=== PATIENT | female | born 1960 | race Caucasian/White ===

== ENCOUNTER 2019-09-23 05:52 | Inpatient (IN) | payer MEDICAID ==
[~2019-09-23] VITALS: Ht 162.6 cm; Wt 47.4 kg
[2019-09-23] MEDS ORDERED: DILTIAZEM HCL 5MG/ML 5ML VIAL IV ONE (06:30)
[2019-09-23] MEDS ORDERED: DILTIAZEM HCL 125 MG in DEXT 5% WATER 100 ML IV ONE (06:30)
[2019-09-23] MEDS ORDERED: ASPIRIN 81MG TABLET PO ONE (06:30)
[2019-09-23 07:17] LABS: BASOPHILS % 1.2 % (0.0-2.0); HEMATOCRIT. 37.1 % (36.0-48.0); HEMOGLOBIN. 12.3 g/dL (12.0-16.0); MEAN CORPUSCULAR HEMOGLOBIN 25.6 pg (28.0-32.0); MEAN CORPUSCULAR VOLUME 77.3 fL (81.0-99.0); MONOCYTES % 12.9 % (2.0-8.0); NEUTROPHILS % 52.9 % (40.0-76.0); PLATELET 230 x1000/uL (130-400); RED BLOOD CELL COUNT 4.79 mill/uL (4.2-5.4); RED CELL DISTRIBUTION WIDTH 15.4 % (11.6-14.6)
[2019-09-23 07:25] LABS: CHLORIDE 115 mEq/L (98-107)
[2019-09-23 07:26] LABS: D-DIMER 0.95 mg/L FEU (<0.50); INR 1.2; PARTIAL THROMBOPLASTIN TIME 27.3 sec (23.4-31.0); PROTHROMBIN TIME 11.8 sec (9.6-11.0)
[2019-09-23] MEDS ORDERED: IOHEXOL-350 100 ML BOTTLE ONE (11:07)
[2019-09-23] MEDS ORDERED: ENOXAPARIN 60MG/0.6ML SYR SUBCUT ONE (12:15)
[2019-09-23] MEDS ORDERED: ACETAMINOPHEN 325MG TABLET PO PRN (16:30)
[2019-09-23] MEDS ORDERED: ONDANSETRON HCL 4MG/2ML INJ IV PRN (16:30)
[2019-09-23 17:42] LABS: LDL CHOLESTEROL 35 mg/dL (5-100)
[2019-09-23 17:44] LABS: HDL CHOLESTEROL 22 mg/dL (40-59)
[2019-09-23 18:00] VITALS: BP 118/69
[2019-09-23] MEDS ORDERED: FUROSEMIDE 40MG/4ML VIAL IVP NR ×2 (18:15→19:00)
[2019-09-23 20:00] VITALS: BP 113/64
[2019-09-23] MEDS: ENOXAPARIN 60MG/0.6ML SYR SUBCUT SCH ×2 (22:00→22:35)
[2019-09-23] MEDS: DILTIAZEM HCL 60MG TABLET PO SCH (22:35)
[2019-09-24] VITALS: BP 95/57
[2019-09-24] MEDS: IPRATROPIUM BROMIDE (0.02%) 0.5MG/2.5ML NEB HHN SCH ×7 (01:18→23:49)
[2019-09-24] MEDS: BUDESONIDE 0.5MG/2ML NEB HHN SCH ×3 (01:19→20:27)
[2019-09-24 04:00] VITALS: BP 97/51
[2019-09-24] MEDS: DILTIAZEM HCL 60MG TABLET PO SCH (06:00)
[2019-09-24 07:05] LABS: BASOPHILS % 0.2 % (0.0-2.0); EOSINOPHILS % 3.5 % (0.0-5.0); HEMATOCRIT. 34.8 % (36.0-48.0); HEMOGLOBIN. 11.7 g/dL (12.0-16.0); LYMPHOCYTES % 31.7 % (20.0-50.0); MEAN CORPUSCULAR HEMOGLOBIN 25.5 pg (28.0-32.0); MEAN CORPUSCULAR VOLUME 76.2 fL (81.0-99.0); MEAN PLATELET VOLUME 10.4 fl (7.4-10.4); MONOCYTES % 12.2 % (2.0-8.0); NEUTROPHILS % 52.4 % (40.0-76.0); PLATELET 243 x1000/uL (130-400); RED BLOOD CELL COUNT 4.57 mill/uL (4.2-5.4); RED CELL DISTRIBUTION WIDTH 15.6 % (11.6-14.6)
[2019-09-24 07:45] LABS: CHLORIDE 109 mEq/L (98-107)
[2019-09-24 08:40] VITALS: BP 95/59
[2019-09-24] MEDS: ENOXAPARIN 60MG/0.6ML SYR SUBCUT SCH ×2 (10:00→21:36)
[2019-09-24 11:11] LABS: CLARITY URINE CLEAR (CLEAR); COLOR URINE YELLOW (YELLOW); KETONES URINE NEGATIVE (NEGATIVE); LEUKOCYTE ESTERASE URINE TRACE (NEGATIVE); NITRITE URINE NEGATIVE (NEGATIVE); OCCULT BLOOD URINE 2+ (NEGATIVE); PH URINE 5.5 (4.5-8.0); PROTEIN URINE TRACE (NEGATIVE); UROBILINOGEN URINE 0.2 E.U./dL (0.2-1.0)
[2019-09-24 11:29] LABS: CANNABINOID URINE SCREEN NEGATIVE (NEGATIVE); METHADONE URINE SCREEN NEGATIVE (NEGATIVE); OPIATES URINE SCREEN NEGATIVE (NEGATIVE)
[2019-09-24 11:30] LABS: *AMPHETAMINES SCREEN URINE NEGATIVE (NEGATIVE); *BARBITURATES SCREEN URINE NEGATIVE (NEGATIVE); *BENZODIAZEPINES SCREEN URINE NEGATIVE (NEGATIVE); *COCAINE SCREEN URINE NEGATIVE (NEGATIVE); PHENCYCLIDINE URINE SCREEN NEGATIVE (NEGATIVE)
[2019-09-24 12:35] VITALS: BP 100/50
[2019-09-24 16:11] LABS: T4 FREE >8.0 ng/dL ng/dL (0.76-1.46)
[2019-09-24 16:14] VITALS: BP 107/59
[2019-09-24 20:00] VITALS: BP 105/62
[2019-09-24] MEDS: METOPROLOL TARTRATE 25MG TABLET PO SCH (21:00)
[2019-09-24] MEDS: METHIMAZOLE 5MG TABLET PO SCH (21:16)
[2019-09-25] VITALS: BP 130/73
[2019-09-25 04:00] VITALS: BP 103/66
[2019-09-25] MEDS: IPRATROPIUM BROMIDE (0.02%) 0.5MG/2.5ML NEB HHN SCH ×5 (04:31→21:04)
[2019-09-25] MEDS: METHIMAZOLE 5MG TABLET PO SCH ×3 (05:06→21:06)
[2019-09-25 06:22] LABS: BASOPHILS % 0.7 % (0.0-2.0); EOSINOPHILS % 6.3 % (0.0-5.0); HEMATOCRIT. 36.9 % (36.0-48.0); HEMOGLOBIN. 12.4 g/dL (12.0-16.0); LYMPHOCYTES % 26.8 % (20.0-50.0); MEAN CORPUSCULAR HEMOGLOBIN 25.8 pg (28.0-32.0); MEAN CORPUSCULAR VOLUME 77.1 fL (81.0-99.0); MEAN PLATELET VOLUME 10.3 fl (7.4-10.4); MONOCYTES % 12.6 % (2.0-8.0); NEUTROPHILS % 53.6 % (40.0-76.0); PLATELET 240 x1000/uL (130-400); RED BLOOD CELL COUNT 4.78 mill/uL (4.2-5.4); RED CELL DISTRIBUTION WIDTH 15.4 % (11.6-14.6)
[2019-09-25 06:44] LABS: CHLORIDE 111 mEq/L (98-107)
[2019-09-25 08:00] VITALS: BP 135/57
[2019-09-25] MEDS: ENOXAPARIN 60MG/0.6ML SYR SUBCUT SCH ×2 (08:30→21:04)
[2019-09-25] MEDS: METOPROLOL TARTRATE 25MG TABLET PO SCH ×3 (08:31→21:00)
[2019-09-25] MEDS: BUDESONIDE 0.5MG/2ML NEB HHN SCH ×2 (08:41→21:04)
[2019-09-25] MEDS ORDERED: METOLAZONE 5MG TABLET PO SCH (09:00)
[2019-09-25] MEDS: DILTIAZEM HCL 5MG/ML 5ML VIAL IV PRN ×3 (11:13→21:07)
[2019-09-25 12:00] VITALS: BP 92/60
[2019-09-25 16:00] VITALS: BP 102/57
[2019-09-25 20:56] VITALS: BP 94/66
[2019-09-26] VITALS (7 sets, daily range): BP systolic 97–130; BP diastolic 52–80
[2019-09-26] MEDS: IPRATROPIUM BROMIDE (0.02%) 0.5MG/2.5ML NEB HHN SCH ×6 (00:30→21:37)
[2019-09-26] MEDS: DILTIAZEM HCL 5MG/ML 5ML VIAL IV PRN ×4 (01:35→14:02)
[2019-09-26] MEDS: METHIMAZOLE 5MG TABLET PO SCH ×3 (06:02→21:24)
[2019-09-26] MEDS: ENOXAPARIN 60MG/0.6ML SYR SUBCUT SCH ×2 (06:02→19:10)
[2019-09-26 06:36] LABS: CHLORIDE 106 mEq/L (98-107)
[2019-09-26 06:37] LABS: BASOPHILS % 0.6 % (0.0-2.0); EOSINOPHILS % 7.5 % (0.0-5.0); HEMATOCRIT. 41.3 % (36.0-48.0); HEMOGLOBIN. 13.9 g/dL (12.0-16.0); LYMPHOCYTES % 19.6 % (20.0-50.0); MEAN CORPUSCULAR HEMOGLOBIN 25.9 pg (28.0-32.0); MEAN CORPUSCULAR VOLUME 76.9 fL (81.0-99.0); MEAN PLATELET VOLUME 10.5 fl (7.4-10.4); MONOCYTES % 12.5 % (2.0-8.0); NEUTROPHILS % 59.8 % (40.0-76.0); PLATELET 257 x1000/uL (130-400); RED BLOOD CELL COUNT 5.37 mill/uL (4.2-5.4); RED CELL DISTRIBUTION WIDTH 15.3 % (11.6-14.6)
[2019-09-26] MEDS: BUDESONIDE 0.5MG/2ML NEB HHN SCH ×2 (08:17→21:37)
[2019-09-26] MEDS: METOPROLOL TARTRATE 25MG TABLET PO SCH ×2 (08:21→21:24)
[2019-09-27] VITALS: BP 123/64
[2019-09-27] MEDS: IPRATROPIUM BROMIDE (0.02%) 0.5MG/2.5ML NEB HHN SCH ×5 (01:13→16:16)
[2019-09-27 04:00] VITALS: BP 116/68
[2019-09-27] MEDS: METHIMAZOLE 5MG TABLET PO SCH ×2 (06:35→13:10)
[2019-09-27] MEDS: ENOXAPARIN 60MG/0.6ML SYR SUBCUT SCH (06:35)
[2019-09-27 06:42] LABS: CHLORIDE 105 mEq/L (98-107)
[2019-09-27 06:58] LABS: BASOPHILS % 0.8 % (0.0-2.0); EOSINOPHILS % 9.2 % (0.0-5.0); HEMATOCRIT. 40.6 % (36.0-48.0); HEMOGLOBIN. 13.5 g/dL (12.0-16.0); MEAN CORPUSCULAR HEMOGLOBIN 25.8 pg (28.0-32.0); MEAN CORPUSCULAR VOLUME 77.4 fL (81.0-99.0); MEAN PLATELET VOLUME 10.4 fl (7.4-10.4); MONOCYTES % 14.1 % (2.0-8.0); NEUTROPHILS % 55.9 % (40.0-76.0); PLATELET 248 x1000/uL (130-400); RED BLOOD CELL COUNT 5.24 mill/uL (4.2-5.4); RED CELL DISTRIBUTION WIDTH 15.6 % (11.6-14.6)
[2019-09-27 08:00] VITALS: BP 116/73
[2019-09-27] MEDS: BUDESONIDE 0.5MG/2ML NEB HHN SCH (08:31)
[2019-09-27] MEDS: METOPROLOL TARTRATE 25MG TABLET PO SCH (09:19)
[2019-09-27 12:00] VITALS: BP 142/77
[2019-09-27] MEDS ORDERED: METO25TA6 PO (13:18)
[2019-09-27] MEDS ORDERED: TAP5 PO (13:18)
[2019-09-27] MEDS ORDERED: ASPI-1393 MT (13:18)
[2019-09-27 16:00] VITALS: BP 121/71
[2019-09-27 16:35] VITALS: BP 121/71
== END 2019-09-27 18:41 | disposition home or self-care (01) | DRG 201 ==
LOC: ER 05:52 → 6WST 12:24 → ENRESERV 16:46
PROVIDERS: ADMIT Internal Medicine; ATTEND Internal Medicine
DX: I48.91 Unspecified atrial fibrillation (principal); E43 Unspecified severe protein-calorie malnutrition; J84.9 Interstitial pulmonary disease, unspecified; E87.8 Other disorders of electrolyte and fluid balance, not elsewhere classified; I27.20 Pulmonary hypertension, unspecified; R64 Cachexia; E83.51 Hypocalcemia; E05.00 Thyrotoxicosis with diffuse goiter without thyrotoxic crisis or storm; H05.20 Unspecified exophthalmos; J44.9 Chronic obstructive pulmonary disease, unspecified; D64.9 Anemia, unspecified; I25.10 Atherosclerotic heart disease of native coronary artery without angina pectoris; I50.40 Unspecified combined systolic (congestive) and diastolic (congestive) heart failure; Z60.2 Problems related to living alone; R07.89 Other chest pain; Z87.891 Personal history of nicotine dependence; Z59.0 Homelessness; Z68.1 Body mass index [BMI] 19.9 or less, adult; Z79.899 Other long term (current) drug therapy; Z79.82 Long term (current) use of aspirin
CPT/HCPCS: 36415; 71045; 71275; 80048; 80061; 80305; 81003; 82533; 83520; 83880; 84439; 84443; 84481; 84484; 85379; 93005; 93306; 94640; 96365; 96372; 96375; 99291; C1893; J1650; J1940; J3490; J7060; J7626; Q9967; A4315

== ENCOUNTER 2019-10-31 17:56 | Inpatient (IN) | payer MEDICAID ==
[~2019-10-31] VITALS: Ht 162.6 cm; Wt 51.5 kg
[~2019-10-31 17:56] MED LIST: ASPI-1497 MT; METO25TA6 PO; TAP5 PO
[2019-10-31] MEDS ORDERED: ASPIRIN 81MG TABLET PO ONE (19:00)
[2019-10-31 19:22] LABS: BASOPHILS % 1.2 % (0.0-2.0); EOSINOPHILS % 5.1 % (0.0-5.0); HEMATOCRIT. 38.3 % (36.0-48.0); HEMOGLOBIN. 12.7 g/dL (12.0-16.0); LYMPHOCYTES % 34.9 % (20.0-50.0); MEAN CORPUSCULAR HEMOGLOBIN 26.2 pg (28.0-32.0); MEAN CORPUSCULAR VOLUME 79.2 fL (81.0-99.0); MONOCYTES % 12.4 % (2.0-8.0); NEUTROPHILS % 46.4 % (40.0-76.0); PLATELET 243 x1000/uL (130-400); RED BLOOD CELL COUNT 4.84 mill/uL (4.2-5.4); RED CELL DISTRIBUTION WIDTH 15.5 % (11.6-14.6)
[2019-10-31 19:27] LABS: CHLORIDE 110 mEq/L (98-107)
[2019-10-31 21:15] LABS: T4 FREE >8.0 ng/dL ng/dL (0.76-1.46)
[2019-10-31] MEDS ORDERED: ONDANSETRON HCL 4MG/2ML INJ IV PRN (22:00)
[2019-10-31] MEDS ORDERED: HYDROCODONE/ACETAMINOPHEN 5/325MG TABLET PO PRN (22:00)
[2019-10-31] MEDS ORDERED: ACETAMINOPHEN 325MG TABLET PO PRN (22:00)
[2019-10-31] MEDS ORDERED: CLONIDINE 0.1MG TABLET PO PRN (22:00)
[2019-10-31] MEDS ORDERED: MAGNESIUM/ALUMINUM HYDROXIDE/SIMETHICONE 30ML UDC PO PRN (22:00)
[2019-10-31] MEDS ORDERED: IPRATROPIUM/ALBUTEROL 0.5-3(2.5)MG/3ML NEB NEB PRN (22:00)
[2019-10-31 23:51] LABS: CHLORIDE 112 mEq/L (98-107)
[2019-10-31 23:58] LABS: CREATINE KINASE 22 IU/L (26-192)
[2019-11-01] VITALS (7 sets, daily range): BP systolic 118–140; BP diastolic 63–76
[2019-11-01 00:01] LABS: CREATINE KINASE MB FRACTION < 1.0 ng/mL (0.5-3.6)
[2019-11-01 00:40] LABS: CLARITY URINE CLOUDY (CLEAR); COLOR URINE YELLOW (YELLOW); KETONES URINE NEGATIVE (NEGATIVE); LEUKOCYTE ESTERASE URINE 2+ (NEGATIVE); NITRITE URINE NEGATIVE (NEGATIVE); OCCULT BLOOD URINE NEGATIVE (NEGATIVE); PROTEIN URINE NEGATIVE (NEGATIVE)
[2019-11-01 00:52] LABS: *AMPHETAMINES SCREEN URINE NEGATIVE (NEGATIVE); *BARBITURATES SCREEN URINE NEGATIVE (NEGATIVE); *BENZODIAZEPINES SCREEN URINE NEGATIVE (NEGATIVE); CANNABINOID URINE SCREEN NEGATIVE (NEGATIVE); METHADONE URINE SCREEN NEGATIVE (NEGATIVE); OPIATES URINE SCREEN NEGATIVE (NEGATIVE); PHENCYCLIDINE URINE SCREEN NEGATIVE (NEGATIVE)
[2019-11-01 00:53] LABS: *COCAINE SCREEN URINE NEGATIVE (NEGATIVE)
[2019-11-01 06:29] LABS: LDL CHOLESTEROL 45 mg/dL (5-100)
[2019-11-01 06:31] LABS: CREATINE KINASE 25 IU/L (26-192); HDL CHOLESTEROL 29 mg/dL (40-59)
[2019-11-01 06:32] LABS: CREATINE KINASE MB FRACTION < 1.0 ng/mL (0.5-3.6)
[2019-11-01] MEDS: METHIMAZOLE 10MG TABLET PO SCH ×3 (06:47→21:20)
[2019-11-01 06:54] LABS: BASOPHILS % 0.8 % (0.0-2.0); EOSINOPHILS % 6.8 % (0.0-5.0); HEMATOCRIT. 36.6 % (36.0-48.0); HEMOGLOBIN. 12.1 g/dL (12.0-16.0); LYMPHOCYTES % 38.9 % (20.0-50.0); MEAN CORPUSCULAR VOLUME 78.7 fL (81.0-99.0); MEAN PLATELET VOLUME 10.2 fl (7.4-10.4); MONOCYTES % 13.8 % (2.0-8.0); NEUTROPHILS % 39.7 % (40.0-76.0); PLATELET 225 x1000/uL (130-400); RED BLOOD CELL COUNT 4.65 mill/uL (4.2-5.4); RED CELL DISTRIBUTION WIDTH 15.1 % (11.6-14.6)
[2019-11-01] MEDS: ASPIRIN 81MG EC TABLET PO SCH (09:21)
[2019-11-01] MEDS: ENOXAPARIN 30MG/0.3ML SYR SUBCUT SCH (09:22)
[2019-11-02] VITALS (9 sets, daily range): BP systolic 83–119; BP diastolic 52–76
[2019-11-02] MEDS: METHIMAZOLE 10MG TABLET PO SCH ×3 (06:06→22:10)
[2019-11-02] MEDS ORDERED: DILTIAZEM HCL 60MG TABLET PO NR (07:33)
[2019-11-02] MEDS: DILTIAZEM HCL 5MG/ML 5ML VIAL IV NR ×2 (08:41→10:01)
[2019-11-02] MEDS: ASPIRIN 81MG EC TABLET PO SCH (09:19)
[2019-11-02] MEDS: ENOXAPARIN 30MG/0.3ML SYR SUBCUT SCH (09:19)
[2019-11-02] MEDS: METOPROLOL TARTRATE 25MG TABLET PO SCH ×2 (10:01→21:00)
[2019-11-02] MEDS: AMIODARONE HCL 200 MG TABLET PO SCH (22:10)
[2019-11-03] VITALS (12 sets, daily range): BP systolic 93–127; BP diastolic 31–96
[2019-11-03] MEDS: METHIMAZOLE 10MG TABLET PO SCH ×3 (06:29→22:01)
[2019-11-03] MEDS: ASPIRIN 81MG EC TABLET PO SCH (09:46)
[2019-11-03] MEDS: METOPROLOL TARTRATE 25MG TABLET PO SCH ×2 (09:46→22:01)
[2019-11-03] MEDS: AMIODARONE HCL 200 MG TABLET PO SCH (09:47)
[2019-11-03] MEDS: ENOXAPARIN 30MG/0.3ML SYR SUBCUT SCH (09:47)
[2019-11-03 13:47] LABS: BASOPHILS % 0.6 % (0.0-2.0); HEMATOCRIT. 37.7 % (36.0-48.0); HEMOGLOBIN. 12.4 g/dL (12.0-16.0); LYMPHOCYTES % 22.4 % (20.0-50.0); MEAN CORPUSCULAR HEMOGLOBIN 26.1 pg (28.0-32.0); MEAN CORPUSCULAR VOLUME 79.2 fL (81.0-99.0); MEAN PLATELET VOLUME 10.5 fl (7.4-10.4); MONOCYTES % 14.7 % (2.0-8.0); NEUTROPHILS % 59.3 % (40.0-76.0); PLATELET 227 x1000/uL (130-400); RED BLOOD CELL COUNT 4.75 mill/uL (4.2-5.4); RED CELL DISTRIBUTION WIDTH 14.8 % (11.6-14.6)
[2019-11-03 14:02] LABS: CHLORIDE 109 mEq/L (98-107)
[2019-11-04] VITALS (14 sets, daily range): BP systolic 93–137; BP diastolic 57–86
[2019-11-04] MEDS: METHIMAZOLE 10MG TABLET PO SCH ×3 (06:20→21:45)
[2019-11-04 07:05] LABS: BASOPHILS % 0.7 % (0.0-2.0); EOSINOPHILS % 6.9 % (0.0-5.0); HEMATOCRIT. 39.1 % (36.0-48.0); HEMOGLOBIN. 12.6 g/dL (12.0-16.0); LYMPHOCYTES % 21.9 % (20.0-50.0); MEAN CORPUSCULAR HEMOGLOBIN 25.8 pg (28.0-32.0); MEAN CORPUSCULAR VOLUME 79.8 fL (81.0-99.0); MEAN PLATELET VOLUME 10.3 fl (7.4-10.4); MONOCYTES % 13.3 % (2.0-8.0); NEUTROPHILS % 57.2 % (40.0-76.0); PLATELET 213 x1000/uL (130-400); RED CELL DISTRIBUTION WIDTH 14.8 % (11.6-14.6)
[2019-11-04] MEDS: DILTIAZEM HCL 5MG/ML 5ML VIAL IV PRN (07:11)
[2019-11-04 07:16] LABS: CHLORIDE 111 mEq/L (98-107)
[2019-11-04] MEDS: ENOXAPARIN 30MG/0.3ML SYR SUBCUT SCH (08:50)
[2019-11-04] MEDS: METOPROLOL TARTRATE 25MG TABLET PO SCH ×2 (08:51→21:44)
[2019-11-04] MEDS: ASPIRIN 81MG EC TABLET PO SCH (08:51)
[2019-11-04] MEDS ORDERED: AMIODARONE HCL 200 MG TABLET PO SCH (09:00)
[2019-11-04] MEDS: AMIODARONE HCL 200 MG TABLET PO SCH ×3 (11:59→18:23)
[2019-11-04] MEDS ORDERED: PERMETHRIN 5% CREAM 60GM TOP NR (22:00)
[2019-11-05] VITALS (13 sets, daily range): BP systolic 98–127; BP diastolic 58–82
[2019-11-05] MEDS: METHIMAZOLE 10MG TABLET PO SCH ×3 (06:55→22:21)
[2019-11-05 08:35] LABS: CHLORIDE 107 mEq/L (98-107)
[2019-11-05 08:44] LABS: BASOPHILS % 0.6 % (0.0-2.0); EOSINOPHILS % 6.6 % (0.0-5.0); HEMATOCRIT. 40.8 % (36.0-48.0); HEMOGLOBIN. 13.4 g/dL (12.0-16.0); LYMPHOCYTES % 22.7 % (20.0-50.0); MEAN CORPUSCULAR VOLUME 79.2 fL (81.0-99.0); MEAN PLATELET VOLUME 10.7 fl (7.4-10.4); MONOCYTES % 10.9 % (2.0-8.0); NEUTROPHILS % 59.2 % (40.0-76.0); PLATELET 222 x1000/uL (130-400); RED BLOOD CELL COUNT 5.14 mill/uL (4.2-5.4)
[2019-11-05] MEDS: METOPROLOL TARTRATE 25MG TABLET PO SCH ×3 (09:13→22:22)
[2019-11-05] MEDS: AMIODARONE HCL 200 MG TABLET PO SCH ×3 (09:13→17:28)
[2019-11-05] MEDS: ASPIRIN 81MG EC TABLET PO SCH (09:13)
[2019-11-05] MEDS: ENOXAPARIN 30MG/0.3ML SYR SUBCUT SCH (09:13)
[2019-11-05] MEDS: DILTIAZEM HCL 5MG/ML 5ML VIAL IV PRN (09:49)
[2019-11-06] VITALS (12 sets, daily range): BP systolic 90–135; BP diastolic 55–86
[2019-11-06] MEDS: METHIMAZOLE 10MG TABLET PO SCH ×3 (06:35→21:36)
[2019-11-06 06:44] LABS: BASOPHILS % 0.8 % (0.0-2.0); EOSINOPHILS % 7.8 % (0.0-5.0); HEMATOCRIT. 39.2 % (36.0-48.0); LYMPHOCYTES % 25.5 % (20.0-50.0); MEAN CORPUSCULAR HEMOGLOBIN 26.1 pg (28.0-32.0); MEAN CORPUSCULAR VOLUME 78.7 fL (81.0-99.0); MEAN PLATELET VOLUME 10.5 fl (7.4-10.4); MONOCYTES % 11.9 % (2.0-8.0); PLATELET 232 x1000/uL (130-400); RED BLOOD CELL COUNT 4.98 mill/uL (4.2-5.4); RED CELL DISTRIBUTION WIDTH 14.7 % (11.6-14.6)
[2019-11-06 07:26] LABS: CHLORIDE 110 mEq/L (98-107)
[2019-11-06] MEDS: ENOXAPARIN 30MG/0.3ML SYR SUBCUT SCH ×2 (09:00→09:47)
[2019-11-06] MEDS: AMIODARONE HCL 200 MG TABLET PO SCH ×3 (09:46→20:57)
[2019-11-06] MEDS: ASPIRIN 81MG EC TABLET PO SCH (09:46)
[2019-11-06] MEDS: METOPROLOL TARTRATE 25MG TABLET PO SCH (09:48)
[2019-11-06] MEDS: METOPROLOL TARTRATE 50MG TABLET PO SCH (21:00)
[2019-11-07] VITALS (10 sets, daily range): BP systolic 109–144; BP diastolic 59–91
[2019-11-07] MEDS: METHIMAZOLE 10MG TABLET PO SCH ×3 (05:48→20:56)
[2019-11-07 06:19] LABS: BASOPHILS % 0.6 % (0.0-2.0); HEMATOCRIT. 38.3 % (36.0-48.0); HEMOGLOBIN. 12.7 g/dL (12.0-16.0); LYMPHOCYTES % 21.9 % (20.0-50.0); MEAN CORPUSCULAR HEMOGLOBIN 26.2 pg (28.0-32.0); MEAN CORPUSCULAR VOLUME 78.9 fL (81.0-99.0); MEAN PLATELET VOLUME 11.3 fl (7.4-10.4); MONOCYTES % 10.9 % (2.0-8.0); NEUTROPHILS % 61.6 % (40.0-76.0); PLATELET 234 x1000/uL (130-400); RED BLOOD CELL COUNT 4.85 mill/uL (4.2-5.4); RED CELL DISTRIBUTION WIDTH 14.9 % (11.6-14.6)
[2019-11-07 06:45] LABS: CHLORIDE 110 mEq/L (98-107)
[2019-11-07] MEDS: ENOXAPARIN 30MG/0.3ML SYR SUBCUT SCH (08:11)
[2019-11-07] MEDS: AMIODARONE HCL 200 MG TABLET PO SCH ×3 (08:11→17:58)
[2019-11-07] MEDS: ASPIRIN 81MG EC TABLET PO SCH (08:13)
[2019-11-07] MEDS: METOPROLOL TARTRATE 50MG TABLET PO SCH ×2 (08:13→20:24)
[2019-11-07] MEDS ORDERED: AMI2 MT (12:25)
[2019-11-07] MEDS ORDERED: METO-539 PO (12:25)
[2019-11-07] MEDS ORDERED: ALBU18HF2 IH (12:30)
[2019-11-07] MEDS ORDERED: GUAIFENESIN 200MG/10ML SUGAR FREE UDC PO PRN (12:30)
[2019-11-07] MEDS ORDERED: [UNRECOGNIZED DRUG - CODE] MT (12:30)
[2019-11-08] VITALS: BP 112/63
[2019-11-08 04:00] VITALS: BP 105/74
[2019-11-08] MEDS: METHIMAZOLE 10MG TABLET PO SCH ×2 (06:15→15:26)
[2019-11-08] MEDS: AMIODARONE HCL 200 MG TABLET PO SCH ×2 (06:15→13:17)
[2019-11-08 08:00] VITALS: BP 121/70
[2019-11-08] MEDS: ENOXAPARIN 30MG/0.3ML SYR SUBCUT SCH (09:38)
[2019-11-08] MEDS: METOPROLOL TARTRATE 50MG TABLET PO SCH (09:42)
[2019-11-08] MEDS: ASPIRIN 81MG EC TABLET PO SCH (09:42)
[2019-11-08 12:00] VITALS: BP 122/54
== END 2019-11-08 17:15 | disposition home or self-care (01) | DRG 203 ==
LOC: ER 17:56 → 5WST 21:39 → ENRESERV 11-01 00:04 → 3WST 11-02 09:25 → 5WST 11-07 11:35 → 3WST 11-07 11:39 → 5WST 11-07 12:34
PROVIDERS: ADMIT Internal Medicine; ATTEND Internal Medicine
DX: R07.9 Chest pain, unspecified (principal); R64 Cachexia; I49.5 Sick sinus syndrome; I27.20 Pulmonary hypertension, unspecified; I11.0 Hypertensive heart disease with heart failure; I50.9 Heart failure, unspecified; I47.1 Supraventricular tachycardia; I48.91 Unspecified atrial fibrillation; E05.90 Thyrotoxicosis, unspecified without thyrotoxic crisis or storm; H91.90 Unspecified hearing loss, unspecified ear; J44.9 Chronic obstructive pulmonary disease, unspecified; F41.9 Anxiety disorder, unspecified; Z87.891 Personal history of nicotine dependence; Z79.899 Other long term (current) drug therapy; Z68.1 Body mass index [BMI] 19.9 or less, adult
CPT/HCPCS: 36415; 71045; 76700; 80048; 80053; 80061; 80305; 81003; 82550; 82553; 83735; 83880; 84439; 84443; 84484; 85025; 93005; 93306; 93970; 94640; 96372; 96374; 97116; 97162; 99285; J1650; J3490